=== PATIENT | female | born 1965 | race Caucasian/White ===

== ENCOUNTER 2017-06-17 12:01 | Emergency (ER) | payer OTHER ==
[~2017-06-17] VITALS: Ht 152.4 cm; Wt 65.3 kg
[2017-06-17 12:05] VITALS: Ht 152.4 cm; Wt 65.3 kg
[2017-06-17 13:37] VITALS: BP 134/89
== END 2017-06-17 14:07 | disposition home or self-care (01) ==
LOC: ED 12:01
DX: M54.41 Lumbago with sciatica, right side (principal); G89.29 Other chronic pain; F17.210 Nicotine dependence, cigarettes, uncomplicated; M19.90 Unspecified osteoarthritis, unspecified site; Z88.8 Allergy status to other drugs, medicaments and biological substances; Z71.6 Tobacco abuse counseling
CPT/HCPCS: 99406; J2270; Q0162

== ENCOUNTER 2017-06-20 14:44 | Emergency (ER) | payer OTHER ==
[~2017-06-20] VITALS: Ht 152.4 cm; Wt 63.0 kg
[2017-06-20 16:27] VITALS: BP 136/87
== END 2017-06-20 16:27 | disposition home or self-care (01) ==
LOC: ED 14:44
DX: M54.5 Low back pain (principal)
CPT/HCPCS: J2270; Q0162

== ENCOUNTER 2017-11-10 12:39 | Emergency (ER) | payer OTHER ==
[~2017-11-10] VITALS: Ht 152.4 cm; Wt 66.2 kg
[2017-11-10 12:58] VITALS: BP 189/129; Ht 152.4 cm; Wt 66.2 kg
== END 2017-11-10 13:32 | disposition left against medical advice (07) ==
LOC: ED 12:39
DX: Z53.21 Procedure and treatment not carried out due to patient leaving prior to being seen by health care provider (principal)

== ENCOUNTER 2018-05-22 12:10 | Emergency (ER) | payer OTHER ==
[~2018-05-22] VITALS: Ht 152.4 cm; Wt 68.0 kg
[2018-05-22 12:16] VITALS: Ht 152.4 cm; Wt 68.0 kg
[2018-05-22 12:23] VITALS: BP 188/116
== END 2018-05-22 13:15 | disposition home or self-care (01) ==
LOC: ED 12:10
DX: M54.9 Dorsalgia, unspecified (principal); G89.29 Other chronic pain; M19.90 Unspecified osteoarthritis, unspecified site; Z98.890 Other specified postprocedural states; Z88.1 Allergy status to other antibiotic agents; Z88.6 Allergy status to analgesic agent